=== PATIENT | female | born 1955 | race Caucasian/White ===

== ENCOUNTER 2017-06-24 17:38 | Emergency (ER) | payer MEDICARE, OTHER ==
[~2017-06-24] VITALS: Ht 175.3 cm; Wt 85.9 kg
[~2017-06-24 17:38] MED LIST: ALBU18HF2 INH; LEVO50TA8 PO; LISI-600 PO; METO25TA6 PO; NICO-687 TP; SIMV40TA4 PO
[2017-06-24 17:53] VITALS: BP 132/99
[2017-06-24] MEDS ORDERED: HYDR-565 PO (19:41)
== END 2017-06-24 19:57 | disposition home or self-care (01) ==
LOC: ER 17:38
DX: S20.212A Contusion of left front wall of thorax, initial encounter (principal); I10 Essential (primary) hypertension; E78.00 Pure hypercholesterolemia, unspecified; K21.9 Gastro-esophageal reflux disease without esophagitis; Z79.899 Other long term (current) drug therapy; W18.30XA Fall on same level, unspecified, initial encounter; Y93.89 Activity, other specified; Y92.89 Other specified places as the place of occurrence of the external cause; Y99.8 Other external cause status
CPT/HCPCS: 71046; 99284

== ENCOUNTER 2018-08-19 08:15 | Day surgery (SDC) | payer MEDICARE, OTHER ==
[~2018-08-19] VITALS: Ht 175.3 cm; Wt 81.6 kg
[2018-08-19] VITALS (23 sets, daily range): BP systolic 144–215; BP diastolic 61–98
[2018-08-19] MEDS ORDERED: CHOL100046 PO (08:33)
[2018-08-19] MEDS ORDERED: normal saline 1000ml 1,000 ML IV PRN (08:35)
[2018-08-19 09:06] LABS: BASOPHILS % (AUTO) 0.7 % (0-1); EOSINOPHILS # (AUTO) 0.1 X10'3 (0-0.9); EOSINOPHILS % (AUTO) 1.2 % (0-6); HEMATOCRIT 41.9 % (35.0-45.0); HEMOGLOBIN 14.6 g/dl (12.0-16.0); LYMPHOCYTES # (AUTO) 1.1 X10'3 (1.1-4.8); LYMPHOCYTES % (AUTO) 15.6 % (21-51); MEAN CORPUSCULAR HEMOGLOBIN 32.4 PG (27.0-31.0); MEAN CORPUSCULAR HGB CONC 34.9 g/dL (33.0-36.5); MEAN CORPUSCULAR VOLUME 92.7 FL (78-98); MEAN PLATELET VOLUME 7.4 FL (7.4-10.4); MONOCYTES # (AUTO) 0.4 X10'3 (0-0.9); MONOCYTES % (AUTO) 6.2 % (2-12); NEUTROPHILS # (AUTO) 5.3 X10'3 (1.8-7.7); NEUTROPHILS % (AUTO) 76.3 % (42-75); PLATELET COUNT 199 X10'3 (140-440); RED BLOOD COUNT 4.52 X10'6 (4.20-5.60); RED CELL DISTRIBUTION WIDTH 14.4 % (11.5-14.5)
[2018-08-19 09:12] LABS: ALBUMIN 3.7 G/DL (3.4-5.0); ANION GAP 7 (8-16); BLOOD UREA NITROGEN 18 MG/DL (7-18); BUN/CREATININE RATIO 13.2 (6.6-38.0); CALCIUM 9.4 MG/DL (8.5-10.1); CHLORIDE 103 MMOL/L (99-107); CREATININE 1.36 MG/DL (0.40-0.90); GLUCOSE 86 MG/DL (70-104); SODIUM 142 MMOL/L (135-145); TOTAL CARBON DIOXIDE 31.7 MMOL/L (24-32); eGFR 39 ML/MIN
[2018-08-19 09:13] LABS: POTASSIUM 2.5 MMOL/L (3.5-5.1)
[2018-08-19] MEDS ORDERED: potassium Cl 20 mEq SR tablet PO PRN ×2 (09:20)
[2018-08-19] MEDS: potassium CL 10mEq/100ml bag 100 ML IV PRN ×2 (09:36→13:14)
[2018-08-19] MEDS ORDERED: fentaNYL/PF 50MCG/1 ML 2ML syringe ONE (10:49)
[2018-08-19] MEDS ORDERED: midazolam 2 mg/2 ml injection ONE (10:49)
[2018-08-19] MEDS ORDERED: hydrALAZINE 20mg/ml inj. IV ONE (11:06)
== END 2018-08-19 16:35 | disposition home or self-care (01) ==
LOC: SSTAY O 08:15
PROVIDERS: ATTEND Radiology Vascular & Interventional Radiology
DX: C34.11 Malignant neoplasm of upper lobe, right bronchus or lung (principal); J93.9 Pneumothorax, unspecified; J44.9 Chronic obstructive pulmonary disease, unspecified; F17.210 Nicotine dependence, cigarettes, uncomplicated; Z79.899 Other long term (current) drug therapy; Z88.4 Allergy status to anesthetic agent; Z91.041 Radiographic dye allergy status; Z91.012 Allergy to eggs; Z92.21 Personal history of antineoplastic chemotherapy
CPT/HCPCS: 32405; 32557; 36415; 71045; 77012; 80048; 85025; 85610; J0360; J2250; J3010; J3480; J7030; 99152; 99153

== ENCOUNTER 2018-08-20 09:03 | Day surgery (SDC) | payer MEDICARE, OTHER ==
[~2018-08-20 09:03] MED LIST changes: +CHOL100046 PO; -NICO-687 TP
== END 2018-08-20 09:50 | disposition home or self-care (01) ==
LOC: SSTAY O 09:03
PROVIDERS: ATTEND Radiology Vascular & Interventional Radiology
DX: J93.83 Other pneumothorax (principal)
CPT/HCPCS: 71046

== ENCOUNTER 2018-08-22 09:16 | Outpatient (CLI) | payer MEDICARE, OTHER | END 2018-08-22 23:59 | disposition home or self-care (01) | LOC: RAD 09:16 | PROVIDERS: ATTEND Radiology Diagnostic Radiology | DX: Z46.82 Encounter for fitting and adjustment of non-vascular catheter (principal) | CPT/HCPCS: 71046 ==

== ENCOUNTER 2022-09-30 20:57 | Emergency (ER) | payer BC, MEDICARE, OTHER ==
[~2022-09-30] VITALS: Ht 175.3 cm; Wt 7.7 kg
[~2022-09-30 20:57] MED LIST changes: -LISI-600 PO; +LISI20TA28 PO; +LOP25T PO; -METO25TA6 PO; +SIMV-45 PO; -SIMV40TA4 PO
[2022-09-30] MEDS ORDERED: glucagon, human recombinant 1mg kit IV ONE (21:25)
[2022-09-30] MEDS ORDERED: nitroGLYCERIN 0.4mg SUBLingual tab SL ONE (21:25)
[2022-09-30] MEDS ORDERED: normal saline 1000ml 1,000 ML IV ONE (21:25)
[2022-09-30] MEDS ORDERED: LORazepam 2 mg/ml vial IV ONE (21:25)
[2022-09-30 22:22] VITALS: BP 144/87
--- NOTE | 2022-09-30 22:38 | NUR ---
ativan not given. pt refused. ativan 1mg partial dose wasted, witnessed by warner liu.
--- NOTE | 2022-09-30 22:57 | NUR ---
ATIVAN NOT GIVEN WASTED ENTIRE AMOUNT WITH MARTHA MCKENNA
--- NOTE | 2022-09-30 22:59 | NUR ---
IV DC'D PT BEING DISCHARGED.
== END 2022-09-30 23:00 | disposition home or self-care (01) ==
LOC: ER 20:59
DX: T17.298A Other foreign object in pharynx causing other injury, initial encounter (principal); I10 Essential (primary) hypertension; Z88.8 Allergy status to other drugs, medicaments and biological substances; Z79.899 Other long term (current) drug therapy; X58.XXXA Exposure to other specified factors, initial encounter; Y93.89 Activity, other specified; Y92.89 Other specified places as the place of occurrence of the external cause; Y99.8 Other external cause status
CPT/HCPCS: 70360; 96361; 96374; 99283; J1610; J7030; 96375